=== PATIENT | female | born 1960 | race Caucasian/White ===

== ENCOUNTER → 2016-05-22 | Outpatient (CLI) | payer OTHER ==
[2015-06-07 08:19] VITALS: BP 190/95
[2016-05-22 08:02] LABS: BASOPHILS # (AUTO) 0.1 X10^3/uL (0.0-0.1); EOSINOPHILS # (AUTO) 0.1 x10^3/uL (0.0-0.2); EOSINOPHILS % (AUTO) 2.4 % (0.9-2.9); HEMATOCRIT 38.8 % (36.0-47.0); HEMOGLOBIN 13.3 g/dL (12.0-16.0); LYMPHOCYTES # (AUTO) 1.7 X10^3/uL (1.3-2.9); LYMPHOCYTES % (AUTO) 28.4 % (21.0-51.0); MEAN CORPUSCULAR HGB CONC 34.3 g/dL (33.0-35.0); MEAN CORPUSCULAR VOLUME 84.6 fL (80.0-100.0); MEAN PLATELET VOLUME 8.8 fL (7.4-11.0); MONOCYTES # (AUTO) 0.4 x10^3/uL (0.3-0.8); NEUTROPHILS # (AUTO) 3.8 x10^3/uL (2.2-4.8); NEUTROPHILS % (AUTO) 62.2 % (42.0-75.0); PLATELET COUNT 198 X10^3/uL (150.0-450.0); RED BLOOD COUNT 4.59 X10^6/uL (3.5-5.4); RED CELL DISTRIBUTION WIDTH 13.3 % (11.6-16.5); WHITE BLOOD COUNT 6.1 X10^3/uL (3.6-10.0)
[2016-05-22 08:28] LABS: ALANINE AMINOTRANSFERASE 100 Units/L (12-78); ALBUMIN 3.5 g/dL (3.4-5.0); ALKALINE PHOSPHATASE 142 Units/L (46-116); ASPARTATE AMINO TRANSFERASE 41 Units/L (15-37); BLOOD UREA NITROGEN 15 mg/dL (7-18); CALCIUM 8.3 mg/dL (8.5-10.1); CARBON DIOXIDE 24.8 mmol/L (21-32); CHLORIDE 109 mmol/L (98-107); COR NA(FOR HYPERGLY) 145 mmol/L (136-145); CREATININE 0.74 mg/dL (0.55-1.02); GLUCOSE 143 mg/dL (65-99); SODIUM 144 mmol/L (136-145); TOTAL PROTEIN 7.1 g/dL (6.4-8.2); TSH (3RD GENERATION) 5.253 uIU/mL (0.358-3.74); eGFR BLACK RACES > 60 (>60); eGFR NON BLACK RACES > 60 (>60)
[2016-05-22 09:07] LABS: RHEUMATOID FACTOR NEGATIVE (NEGATIVE)
[2016-05-22 09:12] LABS: ERYTHROCYTE SEDIMENTATION RATE 14 MM/HOUR (0-20)
[2016-05-22 09:33] LABS: IRON 88 ug/dL (50-175)
[2016-05-24 06:16] LABS: ANTI-NUCLEAR ANTIBODY TEST None Detected (None Detected)
== END ==
LOC: LAB 07:34
PROVIDERS: ATTEND Nurse Practitioner
DX: M06.80 Other specified rheumatoid arthritis, unspecified site (principal); E03.8 Other specified hypothyroidism; D64.9 Anemia, unspecified; E53.8 Deficiency of other specified B group vitamins
CPT/HCPCS: 36415; 80053; 82607; 83540; 84439; 84443; 85025; 85652; 86308; 86430

== ENCOUNTER 2017-02-21 13:49 | Emergency (ER) | payer OTHER ==
[2017-02-21 13:53] VITALS: BMI 27.4
--- NOTE | 2017-02-21 13:56 | DR.GENAD ---
HPI - Complaint/Symptoms Chief Complaint Doctors Comments: Patient presents with complaint of aching all over, chills, cough and low grade temperature. She denies vomitng or diarrhea. She admits to getting influenza shot this year. PMH - PMH Past Medical History: Hypertension, Dyslipidemia, Diabetes, Migraines Past Surgical History: Yes Surgical History: Cholecystectomy, Ortho Surgery, Thyroidectomy - Family History Family Medical History: Diabetes Mellitus, Heart Failure - Social History Do you use any recreational Drugs:: No ROS - Review of Systems Constitutional: Chills, Weakness Eyes: No Symptoms Reported ENTM: No Symptoms Reported Respiratoy: Dry Cough Cardiovascular: No Symptoms Reported Gastrointestinal/Abdominal: Nausea, Vomiting Genitourinary: No Symptoms Reported Neurological: Headache Musculoskeletal: See HPI Integumentary: No Symptoms Reported Hematologic/Lymphatic: No Symptoms Reported Endocrine: No Symptoms Reported Psychiatric: No Symptoms Reported All Other Systems: Reviewed and Negative PE - Vital Signs Vitals: Temperature 100.3 F Pulse Rate [Left Brachial] 114 Pulse Rate 114 Respiratory Rate 17 Blood Pressure [Left Arm] 148/78 Blood Pressure 131/105 O2 Sat by Pulse Oximetry 95 - General Limitations: No Limitations General Appearance: Alert, In No Apparent Distress - Head Head Exam: Normal Inspection, Atraumatic - Eyes Eye exam: Normal Appearance, PERRL, EOMI - ENT ENT Exam: Normal Exam, Normal Oropharynx. negative: Mucous Membranes Dry External Ear Exam: Normal External Inspection TM/Canal Exam: Bilateral Normal Nose Exam: Normal Nose Exam Mouth Exam: Normal Inspection Throat Exam: Normal Inspection - Neck Neck Exam: Normal Inspection - Chest Chest Inspection: Normal Inspection - Respiratory Respiratory Exam: Normal Lung Sounds Bilat Respiratory Exam: Bilateral Clear to Auscultation - Cardiovascular Cardiovascular Exam: Regular Rate, Normal Rhythm - Abdominal Exam Abdominal Exam: Normal Inspection, Normal Bowel Sounds Abdominal Tenderness: negative: RUQ, RLQ, LUQ, LLQ, Epigastrium, Suprapubic, Diffuse, Mild, Moderate, Severe, Other - Extremities Extremities Exam: Normal Inspection, Full ROM - Back Back Exam: Normal Inspection, Full ROM - Neurologic Neurological Exam: Alert, Oriented X3, CN II-XII Intact - Psychiatric Psychiatric Exam: Normal Affect, Normal Mood - Skin Skin Exam: Warm, Dry, Intact Course - Reevaluation 1st: Unchanged ROR - Labs Reviewed Laboratory Results Reviewed?: Yes (Positive influenza A) Result Diagrams: 02/21/17 14:44 02/21/17 14:44 Laboratory: WBC 6.7 X10^3/uL (3.6-10.0) 02/21/17 14:44 RBC 3.87 X10^6/uL (3.5-5.4) 02/21/17 14:44 Hgb 12.0 g/dL (12.0-16.0) 02/21/17 14:44 Hct 34.1 % (36.0-47.0) L 02/21/17 14:44 MCV 88.1 fL (80.0-100.0) 02/21/17 14:44 MCH 31.0 pg (27.0-34.0) 02/21/17 14:44 MCHC 35.2 g/dL (33.0-35.0) H 02/21/17 14:44 RDW 13.5 % (11.6-16.5) 02/21/17 14:44 Plt Count 181 X10^3/uL (150.0-450.0) 02/21/17 14:44 MPV 9.2 fL (7.4-11.0) 02/21/17 14:44 Neut % 82.5 % (42.0-75.0) H 02/21/17 14:44 Lymph % 9.2 % (21.0-51.0) L 02/21/17 14:44 [place] % 7.6 % (0.0-13.0) 02/21/17 14:44 Eos % 0.0 % (0.9-2.9) L 02/21/17 14:44 Baso % 0.7 % (0.2-1.0) 02/21/17 14:44 Neut # 5.5 x10^3/uL (2.2-4.8) H 02/21/17 14:44 Lymph # 0.6 X10^3/uL (1.3-2.9) L 02/21/17 14:44 [place] # 0.5 x10^3/uL (0.3-0.8) 02/21/17 14:44 Eos # 0.0 x10^3/uL (0.0-0.2) 02/21/17 14:44 Baso # 0.0 X10^3/uL (0.0-0.1) 02/21/17 14:44 Absolute Nucleated RBC 0.0 /100WBC 02/21/17 14:44 Sodium 138 mmol/L (136-145) 02/21/17 14:44 Corrected Sodium 140 mmol/L (136-145) 02/21/17 14:44 Potassium 2.5 mmol/L (3.5-5.1) L* 02/21/17 14:44 Chloride 98 mmol/L (98-107) 02/21/17 14:44 Carbon Dioxide 29.7 mmol/L (21-32) 02/21/17 14:44 BUN 11 mg/dL (7-18) 02/21/17 14:44 Creatinine 0.98 mg/dL (0.55-1.02) 02/21/17 14:44 Est GFR (MDRD) Af Amer > 60 (>60) 02/21/17 14:44 Est GFR (MDRD) Non-Af > 60 (>60) 02/21/17 14:44 Glucose 163 mg/dL (65-99) H 02/21/17 14:44 Calcium 7.8 mg/dL (8.5-10.1) L 02/21/17 14:44 Influenza Type A (PCR) Positive (NEGATIVE) A 02/21/17 14:02 Influenza Type B (PCR) Negative (NEGATIVE) 02/21/17 14:02 - XRAY XRAY Interpreted by: Radiologist (Chest: The heart ssize is normal. There are patchy left basilar opacities; suspicious for pneumonia. There is also a trace suspected left pleural effusion. The remainder of the lungs are clear. No penumothorax identified.) - Diagnosis Discharge Problem: Influenza A, Left Basilar Pneumonia Questionable - Discharge Plan Condition: Stable Prescriptions: Levofloxacin [LEVAQUIN TAB 750 MG *] 750 mg PO DAILY #7 tab Oseltamivir Phosphate [Tamiflu] 75 mg PO BID #10 cap - Follow ups/Referrals Follow ups/Referrals: KALEE MOTTA [Primary Care Provider] - 3 days - Instructions
[2017-02-21] MEDS ORDERED: NS 1000 ML 1,000 ML IV SCH (14:00)
[2017-02-21] MEDS ORDERED: NS 1000 ML 1,000 ML ONE (14:02)
[2017-02-21] MEDS ORDERED: TUSSIONEX PENNKINETIC SUSP PO ONE (14:07)
[2017-02-21] MEDS ORDERED: TUSSIONEX PENNKINETIC SUSP ONE (14:23)
--- NOTE | 2017-02-21 14:29 | RAD ---
Chest, one-view Indication: Flu-like symptoms, cough, fever Comparison: None Findings: The heart size is normal. There are patchy left basilar opacities, suspicious for pneumonia . There is also a trace suspected left pleural effusion. The remainder of the lungs are clear. No pne umothorax identified. Impression: Patchy left basilar opacities, suspicious for pneumonia with trace associated parapneumonic effusion. Clinical correlation and follow-up to complete resolution recommended. Reported By:
[2017-02-21 14:55] LABS: BASOPHILS % (AUTO) 0.7 % (0.2-1.0); HEMATOCRIT 34.1 % (36.0-47.0); LYMPHOCYTES # (AUTO) 0.6 X10^3/uL (1.3-2.9); LYMPHOCYTES % (AUTO) 9.2 % (21.0-51.0); MEAN CORPUSCULAR HGB CONC 35.2 g/dL (33.0-35.0); MEAN CORPUSCULAR VOLUME 88.1 fL (80.0-100.0); MEAN PLATELET VOLUME 9.2 fL (7.4-11.0); MONOCYTES # (AUTO) 0.5 x10^3/uL (0.3-0.8); MONOCYTES % (AUTO) 7.6 % (0.0-13.0); NEUTROPHILS # (AUTO) 5.5 x10^3/uL (2.2-4.8); NEUTROPHILS % (AUTO) 82.5 % (42.0-75.0); PLATELET COUNT 181 X10^3/uL (150.0-450.0); RED BLOOD COUNT 3.87 X10^6/uL (3.5-5.4); RED CELL DISTRIBUTION WIDTH 13.5 % (11.6-16.5); WHITE BLOOD COUNT 6.7 X10^3/uL (3.6-10.0)
[2017-02-21 15:26] LABS: BLOOD UREA NITROGEN 11 mg/dL (7-18); CALCIUM 7.8 mg/dL (8.5-10.1); CARBON DIOXIDE 29.7 mmol/L (21-32); CHLORIDE 98 mmol/L (98-107); COR NA(FOR HYPERGLY) 140 mmol/L (136-145); CREATININE 0.98 mg/dL (0.55-1.02); SODIUM 138 mmol/L (136-145); eGFR BLACK RACES > 60 (>60); eGFR NON BLACK RACES > 60 (>60)
[2017-02-21] MEDS ORDERED: K-LYTE EFFERVESCENT ONE (15:27)
[2017-02-21 15:37] VITALS: BP 148/78
[2017-02-22] MEDS ORDERED: K-LYTE EFFERVESCENT PO ONE (15:27)
== END 2017-02-21 16:01 | disposition home or self-care (01) ==
LOC: ER 13:53
DX: J11.1 Influenza due to unidentified influenza virus with other respiratory manifestations (principal)
CPT/HCPCS: 36415; 71010; 80048; 85025; 87040; 87502; 96365; 96367; 99283

== ENCOUNTER 2017-02-24 04:21 | Emergency (ER) | payer OTHER ==
[2017-02-24 04:33] VITALS: BP 151/88; BMI 28.3
[2017-02-24] MEDS ORDERED: DUONEB 0.5 MG/3 MG NEB ONE (05:10)
[2017-02-24] MEDS ORDERED: MUCINEX EXPECTORANT PO ONE (05:15)
--- NOTE | 2017-02-24 05:15 | DR.GENAD ---
HPI - PCP Primary Care Physician: MARTHA - Complaint/Symptoms Chief Complaint Doctors Comments: She has coughing, body aches, pleuritic chest painfor several days (these started on 02/19/17). She was seen in this E.D. on for similar presentation. Her work-up revealed a dx. of Influenza A and a lobar pneumonia. She was sent home with scripts for Levaquin and TamiFlu. Chief Complaint:: COUGHING; HURTING IN CHEST; BODY ACHES; FEVER Self Treatment fo Chief Complaint: PREVIOUS ER VISIT; THERAFLU AND ANTIBIOTICS - Nurses notes reviewed Nurses Notes Review: Yes - Source History Provided: Patient - Mode of Arrival Mode of Arrival: Ambulatory - Timing Onset of Chief Complaint: 02/19/17 Came on: Gradually - Duration Duration: Days (6) - Modifying Factors Worsens:: cough Improves:: nothing PMH - PMH Past Medical History: Yes Past Medical History: Asthma, Depression, Diabetes, Hypertension Past Medical History Comment: LISINOPRIL DAILY; GLUCOPHAGE BID Past Surgical History: Yes Surgical History: Hysterectomy, Thyroidectomy Past Surgical History Comment: BACK AND NECK SURGERY - Family History History of Family Medical Conditions: No Family Medical History: Diabetes Mellitus, Heart Failure - Social History Alcohol Use: None Do you use any recreational Drugs:: No Lives With: Spouse Lives Where: Home - infectious screening In the last 2 months have you had wt loss of >10#?: NO Have you had fever, night sweats or hemotysis?: No Have you traveled outside the country in the last 6 months?: No Isolation: Standard ROS - Review of Systems Constitutional: No Symptoms Reported Eyes: No Symptoms Reported ENTM: No Symptoms Reported Respiratoy: Non-Productive Cough, Wheezing Cardiovascular: No Symptoms Reported Gastrointestinal/Abdominal: No Symptoms Reported Genitourinary: No Symptoms Reported Neurological: No Symptoms Reported Musculoskeletal: Chest wall Integumentary: No Symptoms Reported Hematologic/Lymphatic: No Symptoms Reported Endocrine: No Symptoms Reported Psychiatric: No Symptoms Reported All Other Systems: Reviewed and Negative PE - Vital Signs Vitals: Temperature 98.1 F Pulse Rate 104 Respiratory Rate 24 Blood Pressure [Left Arm] 148/78 Blood Pressure 151/88 O2 Sat by Pulse Oximetry 96 - General Limitations: No Limitations General Appearance: Alert, In No Apparent Distress - Head Head Exam: Normal Inspection - Eyes Eye exam: Normal Appearance - ENT ENT Exam: Normal Exam - Neck Neck Exam: Normal Inspection - Chest Chest Inspection: Normal Inspection - Respiratory Respiratory Exam: Normal Lung Sounds Bilat - Cardiovascular Cardiovascular Exam: Regular Rate, Normal Rhythm - Abdominal Exam Abdominal Exam: Normal Inspection, Normal Bowel Sounds, Soft - Extremities Extremities Exam: Normal Inspection - Back Back Exam: Normal Inspection - Neurologic Neurological Exam: Alert, Oriented X3, CN II-XII Intact - Psychiatric Psychiatric Exam: Normal Affect, Normal Mood - Skin Skin Exam: Warm, Dry, Intact, Normal Color - Diagnosis Discharge Problem: COPD (chronic obstructive pulmonary disease) - Discharge Plan Disposition: HOME, SELF-CARE Condition: Stable - Follow ups/Referrals Follow ups/Referrals: NFD,None [Primary Care Provider] - 3 days - Instructions
[2017-02-24] MEDS ORDERED: DUONEB 0.5 MG/3 MG ONE (05:28)
[2017-02-24] MEDS ORDERED: TORADOL 60 MG VIAL IM ONE (05:29)
[2017-02-24] MEDS ORDERED: TORADOL 60 MG VIAL ONE (05:42)
[2017-02-24] MEDS ORDERED: MUCINEX DM PO ONE (12:00)
== END 2017-02-24 06:19 | disposition home or self-care (01) ==
LOC: ER 04:21
DX: J44.9 Chronic obstructive pulmonary disease, unspecified (principal)
CPT/HCPCS: 94640; 96372; 99282; J1885; J7620

== ENCOUNTER 2017-05-24 15:33 | Emergency (ER) | payer OTHER ==
--- NOTE | 2017-05-24 16:23 | DR.LACERAT ---
HPI - Time Seen Time seen: 15:20 - Primary Care Physician Primary Care Physician: KALIA - Complaints Chief Complaint Doctors Comments: Patient fell while at home in the bathroom . She reports that she got dizzy prior to episode. Chief Complaint:: PT C/O FEELING DIZZY AND FELL AND HIT HER FACE ON THE BATHROOM COUNTER. NOTED LACERATION TO LT UPPER LIP AND INSIDE BOTTOM LIP. NOTED PT'S B/P TO BE LOW. PT STATES SHE TOOK HER B/P MEDS THIS AM. - Source History Provided: Patient - Mode of Arrival Mode of Arrival: Wheelchair - Timing Onset of Chief Complaint: 05/24/17 PMH - PMH Past Medical History: Yes Past Medical History: Asthma, Depression, Diabetes, Hypertension Past Surgical History: Yes Surgical History: Hysterectomy, Thyroidectomy - Family History History of Family Medical Conditions: Yes Family Medical History: Diabetes Mellitus, Heart Failure - Social History Does any household member use tobacco: No Alcohol Use: None Do you use any recreational Drugs:: No Lives With: Family Lives Where: Home - infectious screening In the last 2 months have you had wt loss of >10#?: NO Have you had fever, night sweats or hemotysis?: No Have you traveled outside the country in the last 6 months?: No Isolation: Standard ROS - Review of Systems Constitutional: No Symptoms Reported Eyes: No Symptoms Reported ENTM: No Symptoms Reported Respiratoy: No Symptoms Reported Cardiovascular: No Symptoms Reported Gastrointestinal/Abdominal: No Symptoms Reported Genitourinary: No Symptoms Reported Neurological: No Symptoms Reported Musculoskeletal: No Symptoms Reported Integumentary: No Symptoms Reported Hematologic/Lymphatic: No Symptoms Reported Endocrine: No Symptoms Reported Psychiatric: No Symptoms Reported All Other Systems: Reviewed and Negative PE - Vital Signs Vitals: Temperature 97.3 F Pulse Rate [] 66 Pulse Rate 73 Respiratory Rate 18 Blood Pressure [] 158/81 Blood Pressure 78/51 O2 Sat by Pulse Oximetry 100 - General Limitations: No Limitations General Appearance: Alert, In No Apparent Distress - Head Head Exam: Normal Inspection, Other (left upper outer lip superficial laceration 2.6cm) - Eyes Eye exam: Normal Appearance, PERRL, EOMI - ENT ENT Exam: Normal Exam - Neck Neck Exam: Normal Inspection, Full ROM - Chest Chest Inspection: Normal Inspection - Respiratory Respiratory Exam: Normal Lung Sounds Bilat Respiratory Exam: Bilateral Clear to Auscultation - Cardiovascular Cardiovascular Exam: Regular Rate, Normal Rhythm - Abdominal Exam Abdominal Exam: Normal Inspection, Normal Bowel Sounds Abdominal Tenderness: negative: RUQ, RLQ, LUQ, LLQ, Epigastrium, Suprapubic, Diffuse, Mild, Moderate, Severe, Other - Extremities Extremities Exam: Normal Inspection, Full ROM - Back Back Exam: Normal Inspection, Full ROM - Neurologic Neurological Exam: Alert, Oriented X3, CN II-XII Intact - Psychiatric Psychiatric Exam: Normal Affect, Normal Mood - Skin Skin Exam: Warm, Dry, Intact (except for superficial left upper outer lip laceration 2.6cm) Type of Lesion: Laceration. negative: Rash, Abscess, Foreign Body, Bite/Sting, Abrasion, Other Distribution: Generalized Course - Treatment Treatment: Sutured laceration - Reevaluation 1st: Improved - Education/Counseling Educated On: Treatment, Diagnosis, Prognosis, Needs for Follow Up ROR - Labs Reviewed Result Diagrams: 05/24/17 17:11 05/24/17 17:11 Laboratory: WBC 11.7 X10^3/uL (3.6-10.0) H 05/24/17 17:11 RBC 4.48 X10^6/uL (3.5-5.4) 05/24/17 17:11 Hgb 13.6 g/dL (12.0-16.0) 05/24/17 17:11 Hct 38.2 % (36.0-47.0) 05/24/17 17:11 MCV 85.3 fL (80.0-100.0) 05/24/17 17:11 MCH 30.4 pg (27.0-34.0) 05/24/17 17:11 MCHC 35.7 g/dL (33.0-35.0) H 05/24/17 17:11 RDW 13.4 % (11.6-16.5) 05/24/17 17:11 Plt Count 253 X10^3/uL (150.0-450.0) 05/24/17 17:11 MPV 8.3 fL (7.4-11.0) 05/24/17 17:11 Neut % (Auto) 70.8 % (42.0-75.0) 05/24/17 17:11 Lymph % (Auto) 22.3 % (21.0-51.0) 05/24/17 17:11 [place] % (Auto) 5.4 % (0.0-13.0) 05/24/17 17:11 Eos % (Auto) 0.8 % (0.9-2.9) L 05/24/17 17:11 Baso % (Auto) 0.7 % (0.2-1.0) 05/24/17 17:11 Neut # (Auto) 8.2 x10^3/uL (2.2-4.8) H 05/24/17 17:11 Lymph # (Auto) 2.6 X10^3/uL (1.3-2.9) 05/24/17 17:11 [place] # (Auto) 0.6 x10^3/uL (0.3-0.8) 05/24/17 17:11 Eos # (Auto) 0.1 x10^3/uL (0.0-0.2) 05/24/17 17:11 Baso # (Auto) 0.1 X10^3/uL (0.0-0.1) 05/24/17 17:11 Absolute Nucleated RBC 0.0 /100WBC 05/24/17 17:11 Sodium 141 mmol/L (136-145) 05/24/17 17:11 Corrected Sodium 142 mmol/L (136-145) 05/24/17 17:11 Potassium 3.0 mmol/L (3.5-5.1) L* 05/24/17 17:11 Chloride 102 mmol/L (98-107) 05/24/17 17:11 Carbon Dioxide 26.8 mmol/L (21-32) 05/24/17 17:11 BUN 17 mg/dL (7-18) 05/24/17 17:11 Creatinine 1.08 mg/dL (0.55-1.02) H 05/24/17 17:11 Est GFR (MDRD) Af Amer > 60 (>60) 05/24/17 17:11 Est GFR (MDRD) Non-Af 56 (>60) L 05/24/17 17:11 Glucose 128 mg/dL (65-99) H 05/24/17 17:11 Calcium 8.5 mg/dL (8.5-10.1) 05/24/17 17:11 Corrected Calcium TNP 05/24/17 17:11 Total Bilirubin 0.40 mg/dL (0.2-1.0) 05/24/17 17:11 AST 19 Units/L (15-37) 05/24/17 17:11 ALT 27 Units/L (12-78) 05/24/17 17:11 Alkaline Phosphatase 130 Units/L (46-116) H 05/24/17 17:11 Creatine Kinase 85 Units/L (26-192) 05/24/17 17:11 CK-MB (CK-2) 1.9 ng/mL (0-4.0) 05/24/17 17:11 CK/CKMB % Calc 2.2 % (<4) 05/24/17 17:11 Troponin I < 0.02 ng/mL (0-1.5) 05/24/17 17:11 Total Protein 7.7 g/dL (6.4-8.2) 05/24/17 17:11 Albumin 4.1 g/dL (3.4-5.0) 05/24/17 17:11 Globulin 3.6 g/dL (2.5-4.5) 05/24/17 17:11 Albumin/Globulin Ratio 1.1 Ratio (1.1-2.1) 05/24/17 17:11 - XRAY XRAY Interpreted by: Radiologist (CT Brain: no acute intracranial abnormality; Right lateral humerus: negative,Left forearm:No acute fracture or osseous abnormality periosteal reaction. There is no radiopaque foreign body, soft tissue calcification or gas. Left humerus: mild acromioclavicular joint degeneration is noted. The humerus appears to be intact. There are findings suggesting a minimally depressed fracture through the radial head. Follow up dedicated views of the left elbow recommented. Left Elbow: There is no joint effusion. The joint spaces are maintained. The mineralization is normal. There is no aggressive bone lesion or abnormal periosteal reaction. There is no soft tissue calcification or gas. No acute fracture os osseous abnormality demonstrated on left elbow radiographs.) Procedures - Laceration/Wound Repair Left Face Wound Length (cm): 3 Wound's Depth, Shape: Superficial Wound Explored: clean Betadine Prep?: Yes Anesthesia: 1% Lidocaine Wound Debrided: minimal Wound Repaired With: sutures Suture Size/Type: 6:0, Prolene (6) Number of Sutures: 6 Layer Closure?: No - Diagnosis Discharge Problem: Hypokalemia, Degenerative change left shoulder, Dizziness - Discharge Plan Condition: Stable - Follow ups/Referrals Follow ups/Referrals: KALEE MOTTA [Primary Care Provider] - 3 days - Instructions
--- NOTE | 2017-05-24 17:09 | RAD ---
HISTORY: Status post fall. Left upper arm pain. Study: Left humerus: Two views Comparison: None Findings: Mild acromioclavicular joint degeneration is noted. The humerus appears to be intact. There are fin dings suggesting a minimally depressed fracture through the radial head. Follow-up dedicated views o f the left elbow are recommended. IMPRESSION: 1. Degenerative change in the left shoulder described above. 2. There appears to be a minimally depressed radial head fracture. Dedicated views of the elbow are recommended. Reported By:
--- NOTE | 2017-05-24 17:09 | CT ---
CT head without contrast Indication: Syncope and dizziness Technique: Axial images from the skullbase to the vertex without contrast. Coronal and sagittal refor mats provided. Findings: There is no acute intracranial hemorrhage, mass or mass effect. No extra-axial fluid collec tion is identified. Ventricles and sulci are normal. Review of bone windows shows no osseous lesion. The visualized paranasal sinuses and mastoid air cells are clear. Impression: No acute intracranial abnormality. Reported By:
--- NOTE | 2017-05-24 17:09 | RAD ---
History: Right upper arm pain after fall Study: AP and lateral right humerus Findings: There is no fracture or dislocation or periosteal reaction. Impression: Negative Reported By:
--- NOTE | 2017-05-24 17:11 | RAD ---
FOREARM RADIOGRAPHS: CLINICAL HISTORY: 57-year-old female status post fall with left arm pain. COMPARISON: None. FINDINGS: 2 views of the left forearm were obtained. These demonstrate no acute fracture or malalignm ent. The wrist and elbow articulations are congruent on provided views. The mineralization is maint ained. There is no aggressive bone lesion or abnormal periosteal reaction. There is no radiopaque f oreign body, soft tissue calcification or gas. IMPRESSION: No acute fracture or osseous abnormality demonstrated on left forearm radiographs. Reported By:
[2017-05-24 17:18] LABS: BASOPHILS # (AUTO) 0.1 X10^3/uL (0.0-0.1); BASOPHILS % (AUTO) 0.7 % (0.2-1.0); EOSINOPHILS # (AUTO) 0.1 x10^3/uL (0.0-0.2); EOSINOPHILS % (AUTO) 0.8 % (0.9-2.9); HEMATOCRIT 38.2 % (36.0-47.0); HEMOGLOBIN 13.6 g/dL (12.0-16.0); LYMPHOCYTES # (AUTO) 2.6 X10^3/uL (1.3-2.9); LYMPHOCYTES % (AUTO) 22.3 % (21.0-51.0); MEAN CORPUSCULAR HEMOGLOBIN 30.4 pg (27.0-34.0); MEAN CORPUSCULAR HGB CONC 35.7 g/dL (33.0-35.0); MEAN CORPUSCULAR VOLUME 85.3 fL (80.0-100.0); MEAN PLATELET VOLUME 8.3 fL (7.4-11.0); MONOCYTES # (AUTO) 0.6 x10^3/uL (0.3-0.8); MONOCYTES % (AUTO) 5.4 % (0.0-13.0); NEUTROPHILS # (AUTO) 8.2 x10^3/uL (2.2-4.8); NEUTROPHILS % (AUTO) 70.8 % (42.0-75.0); PLATELET COUNT 253 X10^3/uL (150.0-450.0); RED BLOOD COUNT 4.48 X10^6/uL (3.5-5.4); RED CELL DISTRIBUTION WIDTH 13.4 % (11.6-16.5); WHITE BLOOD COUNT 11.7 X10^3/uL (3.6-10.0)
[2017-05-24 17:40] LABS: ALANINE AMINOTRANSFERASE 27 Units/L (12-78); ALBUMIN 4.1 g/dL (3.4-5.0); ALKALINE PHOSPHATASE 130 Units/L (46-116); ASPARTATE AMINO TRANSFERASE 19 Units/L (15-37); BLOOD UREA NITROGEN 17 mg/dL (7-18); CALCIUM 8.5 mg/dL (8.5-10.1); CARBON DIOXIDE 26.8 mmol/L (21-32); CHLORIDE 102 mmol/L (98-107); CKMB % 2.2 % (<4); COR NA(FOR HYPERGLY) 142 mmol/L (136-145); CREATINE KINASE 85 Units/L (26-192); CREATINE KINASE MB 1.9 ng/mL (0-4.0); CREATININE 1.08 mg/dL (0.55-1.02); SODIUM 141 mmol/L (136-145); TOTAL PROTEIN 7.7 g/dL (6.4-8.2); TROPONIN I < 0.02 ng/mL (0-1.5); eGFR BLACK RACES > 60 (>60); eGFR NON BLACK RACES 56 (>60)
[2017-05-24] MEDS ORDERED: K-LYTE EFFERVESCENT PO STA (17:47)
[2017-05-24] MEDS ORDERED: K-LYTE EFFERVESCENT ONE (17:50)
--- NOTE | 2017-05-24 18:21 | RAD ---
ELBOW RADIOGRAPHS CLINICAL HISTORY: 57-year-old female status post fall with left arm pain COMPARISON: None. FINDINGS: 3 views of the left elbow demonstrate no acute fracture or malalignment. The joint spaces are maintained. There is no joint effusion. The mineralization is normal. There is no aggressive manuel ne lesion or abnormal periosteal reaction. There is no soft tissue calcification or gas. IMPRESSION: No acute fracture or osseous abnormality demonstrated on left elbow radiographs. Reported By:
[2017-05-24 18:52] VITALS: BP 151/79
== END 2017-05-24 18:50 | disposition home or self-care (01) ==
LOC: ER 16:07
PROC: 0WQ2XZZ Repair Face, External Approach (ICD-10-PCS; principal; 2017-05-24)
DX: S01.511A Laceration without foreign body of lip, initial encounter (principal); R42 Dizziness and giddiness; E87.6 Hypokalemia; M19.012 Primary osteoarthritis, left shoulder; W01.198A Fall on same level from slipping, tripping and stumbling with subsequent striking against other object, initial encounter; Y92.009 Unspecified place in unspecified non-institutional (private) residence as the place of occurrence of the external cause
CPT/HCPCS: 12013; 36415; 70450; 73060; 73070; 73090; 80053; 82550; 82553; 84484; 85025; 93005; 93010; 99283; 99284; A4222

== ENCOUNTER → 2017-07-31 | Outpatient (CLI) | payer OTHER ==
[2017-07-31 09:43] LABS: CREATININE 0.7 mg/dL (0.55-1.02)
--- NOTE | 2017-07-31 13:48 | US ---
HISTORY: Right upper quadrant pain. Abnormal LFTs. Study: Right upper quadrant abdominal ultrasound Comparison: No recent priors. Technique: Multiple diaz scale and color flow Doppler images of the right upper quadrant were obtaine d. Findings: The liver is normal in echotexture and size. No focal intraparenchymal mass or intrahepatic biliary ductal dilatation can be observed. The gallbladder is surgically absent. The common bile duct is un remarkable measuring 6 mm. No pericholecystic fluid or gallbladder wall thickening can be observed. The CBD measures within normal limits. The right kidney appears normal in size without perinephric fluid collection or nephrolithiasis. The right kidney measures 10 x 5 x 5 cm. However, there is a 17 x 13 mm mixed echotexture mass seen in t he right mid kidney which could reflect an angiomyolipoma but which will need further evaluation with CT imaging with IV contrast. No hydronephrosis or perirenal fluid can be observed. The pancreatic h ead and body are unremarkable. The pancreatic tail is largely obscured by overlying bowel gas. IMPRESSION: Status post cholecystectomy. No sonographic liver abnormalities observed. However, there is a 17 x 13 mm mixed echotexture renal lesion versus mass seen in the right mid kidne y (cortically based) which could reflect an angiomyolipoma but which will need further evaluation wit h CT imaging with IV contrast. Reported By:
== END ==
LOC: RAD 09:07
PROVIDERS: ATTEND Family Medicine
DX: R94.5 Abnormal results of liver function studies (principal)
CPT/HCPCS: 36415; 76705; 82565; 84520